=== PATIENT | female | born 1975 | race Caucasian/White ===

== ENCOUNTER 2019-08-29 11:57 | Emergency (ER) | payer SELFPAY ==
[2019-08-29 12:11] VITALS: BP 163/87; PULSE 72; RESP 17; TEMP 36.9; O2SAT 98; BMI 20.1
--- NOTE | 2019-08-29 12:16 | W.ED.NAVMDI ---
HPI - Nausea/Vomiting/Diarrhea General: Chief complaint: Nausea/Vomiting/Diarrhea Stated complaint: n/v x 6 weeks Time Seen by Provider: 08/29/19 12:10 History of Present Illness: HPI Narrative: Patient is a 44-year-old female comes to the ED with abdominal pain, nausea/vomiting and diarrhea. Patient says symptoms started about 6 weeks ago. The abdominal pain is located at epigastric and right upper quadrant. Symptoms worsen after she eats food. Currently she rates her abdominal pain a 5 out of 10. Patient says she has had diarrhea after every time she eats daily. She describes the diarrhea as yellow and fatty. Yesterday patient says she has bright red blood in stool and when she wiped. She says she has a history of hemorrhoids. Patient also has nausea and vomiting that has been constant since onset of symptoms. Patient says she has at least one or more episodes of emesis every day. She currently is not taking any medications to help with symptoms. Patient did say that about 3 weeks ago she had a fever but it has since resolved and she has not had a fever recently. Patient also describes abdominal bloating after she eats. Associated nausea: Yes Associated symtoms: Reports bloating and nausea; Denies change in vision, chest pain, dysuria, fatigue, headache(s) or palpitations Review of Systems Const: Denies: fever(s), chills or fatigue Eyes: Denies: change in vision or eye discomfort ENMT: Denies: throat pain, odynophagia, nasal discharge or nasal congestion Card: Denies: chest pain, palpitations, edema, swelling of feet/ankles, dyspnea on exertion or orthopnea Resp: Denies: dyspnea, productive cough or non-productive cough GI: Reports: abdominal pain, nausea, vomiting, diarrhea and bloating; Denies: constipation or hematochezia : Denies: flank pain, dysuria or hematuria Musc: Denies: neck pain, back pain or extremity swelling Skin/Breast: Denies: rash or new lesions Neuro: Denies: headache(s), numbness in extremities or weakness in extremities PFS ED PFSH: Social History Smoking and tobacco status: current every day smoker Physical Exam Const: COMMON NORMALS: no acute distress, patient oriented x3 and alert GENERAL APPEARANCE: cooperative HENMT: COMMON NORMALS: normocephalic HEAD & SCALP: normocephalic MOUTH: Normal oral and palatal mucosa present THROAT: posterior oropharynx normal and uvula midline Eye: COMMON NORMALS: Equal, round and reactive pupils present PUPIL: Yes Equal, round and reactive pupils present Neck/C-Spine: COMMON NORMALS: supple GENERAL: Yes normal visual inspection Resp: COMMON NORMALS: normal respiratory effort, No retractions, No use of accessory muscles and clear to auscultation bilaterally AUSCULTATION: clear to auscultation bilaterally Cardio: COMMON NORMALS: regular rate, regular rhythm, S1 normal heart sound present, S2 normal heart sound present, No gallops present (Cardio), No clicks present (Cardio), No murmurs present (Cardio) and Peripheral pulses 2+ throughout RATE: regular rate RHYTHM: regular rhythm HEART SOUNDS: S1 normal heart sound present and S2 normal heart sound present PERIPHERAL PULSES: Peripheral pulses 2+ throughout GI: COMMON NORMALS: Soft to palpation and no masses AUSCULTATION: Yes Hyperactive bowel sounds present PALPATION: Yes Soft to palpation and Yes Tenderness to palpation present (GI) (Right upper quadrant and epigastric region.) Details: RUQ : COMMON NORMALS: Yes no CVA tenderness BLADDER/KIDNEY EXAM: Yes no CVA tenderness Back/Pelvis: COMMON NORMALS: no CVA tenderness Extremity: COMMON NORMALS: normal to inspection and no pedal edema Neuro: COMMON NORMALS: patient oriented x3 and moves all extremities SENSORIUM/ORIENTATION: Yes alert Skin: COMMON NORMALS: no rashes or lesions noted GENERAL SKIN EXAM: no rashes or lesions noted and dry skin Course Vital Signs: Vital signs: Vital Signs Temperature 98.5 F 08/29/19 12:11 Pulse Rate 54 L 08/29/19 15:00 Respiratory Rate 16 08/29/19 15:00 Blood Pressure 146/80 08/29/19 15:00 Pulse Oximetry 98 08/29/19 15:00 MDM - Nausea/Vomiting/Diarrhea Lab Data: Attestation: I reviewed the patient's lab results. Labs: Lab Results 08/29/19 08/29/19 08/29/19 Range/Units 12:29 12:29 12:29 WBC 6.5 (4.0-10.0) 10^3/ uL RBC 5.11 (4.1-5.3) 10^6/u L Hgb 15.6 H (11.5-15.3) g/dL Hct 47.2 H (37.0-47.0) % MCV 92.4 (81-99) fL MCH 30.5 (28.0-34.0) pg MCHC 33.1 (30.0-36.0) g/dL RDW 14.1 (12.1-15.1) % Plt Count 272 (130-400) 10^3/c mm MPV 9.5 (7.4-10.4) fL Neut % (Auto) 49.2 % Lymph % (Auto) 43.3 % [place] % (Auto) 5.7 % Eos % (Auto) 1.2 % Baso % (Auto) 0.3 % Neut # (Auto) 3.2 (1.8-7.7) 10^3/u L Lymph # (Auto) 2.8 (0.8-4.8) 10^3/u L [place] # (Auto) 0.4 (0.2-0.9) 10^3/u L Eos # (Auto) 0.1 (0.0-0.8) 10^3/u L Baso # (Auto) 0.0 (0.0-0.1) 10^3/u L Nucleated RBC % (a uto) 0 % Nucleated RBCs # 0.0 /100WBC Sodium 137 (136-145) mmol/L Potassium 3.9 (3.5-5.1) mmol/L Chloride 100 (98-107) mmol/L Carbon Dioxide 25 (22-29) mmol/L Anion Gap 15.9 (5-19) BUN 8 (6-20) mg/dL Creatinine 0.6 (0.5-0.9) mg/dL GFR Calculation 108.1 (90-130) mL/min Glucose 99 (65-115) mg/dL Calculated Osmolal ity 280 L (285-295) mOsm/k g Calcium 9.0 (8.5-10.5) mg/dL Total Bilirubin 0.7 (0.15-1.2) mg/dL AST 20 (0-32) U/L ALT 22 (0-33) U/L Alkaline Phosphata se 108 H (35-105) IU/L Total Protein 7.2 (6.6-8.7) g/dL Albumin 4.4 (3.5-5.2) g/dL Globulin 2.8 (1.3-4.6) g/dL Lipase 22 (13-60) U/L HCG, Qual Negative (Negative) Imaging Data^: US: Attestation: I personally reviewed and interpreted this imaging study as follows: Radiologist's impression: [place] [id number] Ultrasound Report Signed Patient: Christina Cochran Unit #: [id number] : 1975 Age/Sex: 44 / F ADM Date: 08/29/19 Loc: ER Room/Bed: Attending Dr: Ordering Provider/Ordering MD: Eloy Turcios Date of Service: 08/29/19 Procedure(s): US gall bladder 32283 Accession Number(s): [id number] Report Number: [id number] WS: [id number] ABDOMINAL ULTRASOUND LIMITED REASON FOR VISIT: epigastric and RUQ tenderness TECHNIQUE: Grayscale and Doppler ultrasound examination of the abdomen. FINDINGS: Pancreas: Normal Abdominal aorta and IVC: Normal Liver: Liver measures 9.4 cm in length. Normal hepatopedal circulation. Gallbladder: Gallbladder wall thickness measures 0.2 mm. No gallstones identified. Common bile duct measured 0.25 cm Right kidney: Right kidney measures 10.0 cm x 6.0 cm x 3.4 cm. No hydronephrosis or stones. US/US gall bladder [id number] IMPRESSION: Normal right upper quadrant ultrasound. Dictated By: Archie Townsend DO Signed By: Archie Townsend DO Signed Date/Time: 08/29/19 1302 DD/ 1300 CT Abd/Pel: Attestation: I personally reviewed and interpreted this imaging study as follows: Radiologist's impression: [address] [id number] [address] Scan Report Signed Patient: Christina Cochran Unit #: [id number] : 1975 Age/Sex: 44 / F ADM Date: 08/29/19 Loc: ER Room/Bed: Attending Dr: Ordering Provider/Ordering MD: Eloy Turcios Date of Service: 08/29/19 Procedure(s): CT abdomen pelvis w con* [id number] Accession Number(s): [id number] Report Number: [id number] WS: [id number] CT abdomen pelvis w con* [id number] REASON FOR EXAM: abdom pain, n/v/diarrhea IV CONTRAST ADMINISTERED: Omnipaque 300, 95 mL TOTAL EXAM DLP: 518.[address] scans at [facility] use at least one of these dose optimization techniques: automated exposure control; mA and/or kV adjustment per patient size (includes targeted exams where dose is matched to clinical indication); or iterative reconstruction. FINDINGS: The liver appears to be of normal size configuration. The lower lung velázquez were normal. The gallbladder shows no definite stones. The pancreas head, body, tail were normal. The spleen was normal. The adrenal glands show no abnormalities. The kidneys and ureters were normal. The small bowel is slightly prominent but not thickened wall and show no obstructive changes. There is mild interposition of the colon between the diaphragm and liver. The appendix was normal show no inflammatory changes. The remaining large bowel was normal. The urinary bladder was normal. The uterus is of normal size there is bilateral small ovarian cysts bilaterally. The endometrium is thickened measured 10.37 mm. There is fluid in the cul-de-sac on the right side. The bony pelvis was normal as well as the lumbar spine. Spurring is seen off the L1-[address]/CT abdomen pelvis w con* [id number] IMPRESSION: Small cystic changes in both ovaries Free fluid in the cul-de-sac on the right Slightly dilated small bowel but no obstructive changes. Dictated By: Archie Townsend DO Signed By: Archie Townsend DO Signed Date/Time: 08/29/194 DD/ 27 Discharge Plan Discharge Patient Disposition: Home, Self-Care Clinical Impression: Biliary colic symptom Nausea & vomiting Qualifiers: Vomiting type: unspecified Vomiting Intractability: non-intractable Qualified Code(s): R11.2 - Nausea with vomiting, unspecified Condition: Stable Prescriptions: New Zofran 4 mg tablet 4 mg PO BID Qty: 20 RF: 0 dicyclomine 20 mg tablet 20 mg PO QID Qty: 30 RF: 0 omeprazole 20 mg capsule,delayed release(DR/EC) 20 mg PO DAILY Qty: 20 RF: 0 No Action No Known Home Medications RF: 0 Discharge Orders: Discharge Order (Routine); Ordered 08/29/19 Ordered By: Eloy Turcios Discharge Diet: Advance as tolerated Discharge Activity: Resume usual activity Patient Instructions: Biliary Colic (ED), Clear Liquid Diet (ED) Activity Restrictions/Additional Instructions: Call your PCP and set up an appointment for reevaluation in 5 to 7 days. Take dicyclomine to help with any abdominal cramping and diarrhea. Prescribed you Zofran to take as needed for nausea. And I am also putting you on omeprazole which will help with your epigastric pain and discomfort. Drink plenty of fluids and stay hydrated. Advance your diet as tolerated. I would start with only drinking clear liquids for the next 24 hours and advance from there slowly. Return to the ED if symptoms worsen. Discharge Date/Time: 08/29/19 15:00 Coding Level of Care Code ED Locomotive Observer for Issa Fwd Exam Comprehensive
[2019-08-29 12:20] VITALS: BP 163/87; PULSE 78; RESP 16; O2SAT 98
[2019-08-29] MEDS: sodium chloride 0.9% 1,000 ML 999 ML IV (12:32)
[2019-08-29] MEDS: ondansetron 2 mg/ML SDV 2 mL 4 MG IVP (12:32)
--- NOTE | 2019-08-29 12:34 | US_ITS ---
WS: [id number] ABDOMINAL ULTRASOUND LIMITED REASON FOR VISIT: epigastric and RUQ tenderness TECHNIQUE: Grayscale and Doppler ultrasound examination of the abdomen. FINDINGS: Pancreas: Normal Abdominal aorta and IVC: Normal Liver: Liver measures 9.4 cm in length. Normal hepatopedal circulation. Gallbladder: Gallbladder wall thickness measures 0.2 mm. No gallstones identified. Common bile duct measured 0.25 cm Right kidney: Right kidney measures 10.0 cm x 6.0 cm x 3.4 cm. No hydronephrosis or stones. US/US gall bladder [id number] IMPRESSION: Normal right upper quadrant ultrasound.
[2019-08-29 12:51] LABS: Basophils % 0.3 %; Eosinophils # 0.1 10^3/uL (0.0-0.8); Eosinophils % 1.2 %; Hematocrit 47.2 % (37.0-47.0); Hemoglobin 15.6 g/dL (11.5-15.3); Lymphocytes # 2.8 10^3/uL (0.8-4.8); Lymphocytes % 43.3 %; Mean Corpuscular HGB Conc 33.1 g/dL (30.0-36.0); Mean Corpuscular Hemoglobin 30.5 pg (28.0-34.0); Mean Corpuscular Volume 92.4 fL (81-99); Mean Platelet Volume 9.5 fL (7.4-10.4); Monocytes # 0.4 10^3/uL (0.2-0.9); Monocytes % 5.7 %; Neutrophils # 3.2 10^3/uL (1.8-7.7); Neutrophils % 49.2 %; Nucleated Red Blood Cells % 0 %; Platelet Count 272 10^3/cmm (130-400); Red Blood Count 5.11 10^6/uL (4.1-5.3); Red Cell Distribution Width 14.1 % (12.1-15.1); White Blood Count 6.5 10^3/uL (4.0-10.0)
[2019-08-29 12:54] LABS: HCG, Serum Qual Negative (Negative)
[2019-08-29 13:01] LABS: Alanine Aminotransferase 22 U/L (0-33); Albumin Level 4.4 g/dL (3.5-5.2); Alkaline Phosphatase 108 IU/L (35-105); Anion Gap 15.9 (5-19); Aspartate Amino Transferase 20 U/L (0-32); Blood Urea Nitrogen 8 mg/dL (6-20); Carbon Dioxide 25 mmol/L (22-29); Chloride 100 mmol/L (98-107); Globulin 2.8 g/dL (1.3-4.6); Glomerular Filtration Rate 108.1 mL/min (90-130); Glucose 99 mg/dL (65-115); Lipase 22 U/L (13-60); Osmolality Calculated 280 mOsm/kg (285-295); Potassium 3.9 mmol/L (3.5-5.1); Sodium 137 mmol/L (136-145); Total Bilirubin 0.7 mg/dL (0.15-1.2); Total Protein 7.2 g/dL (6.6-8.7)
[2019-08-29] MEDS: diphenhydrAMINE 50 mg/mL SDV 1mL 25 MG IVP (13:05)
[2019-08-29 13:07] VITALS: RESP 18; O2SAT 99
[2019-08-29] MEDS: morphine 4 mg/mL SDV 1 mL IVP (13:07)
[2019-08-29 13:08] VITALS: BP 151/80; PULSE 60; RESP 18; O2SAT 99
--- NOTE | 2019-08-29 13:08 | CT_ITS ---
WS: [id number] CT abdomen pelvis w con* [id number] REASON FOR EXAM: abdom pain, n/v/diarrhea IV CONTRAST ADMINISTERED: Omnipaque 300, 95 mL TOTAL EXAM DLP: 518.[address] scans at [facility] use at least one of these dose optimization techniques: automat ed exposure control; mA and/or kV adjustment per patient size (includes targeted exams where dose is matched to clinical indication); or iterative reconstruction. FINDINGS: The liver appears to be of normal size configuration. The lower lung velázquez were normal. The gallbladder shows no definite stones. The pancreas head, body, tail were normal. The spleen was normal. The adrenal glands show no abnormalities. The kidneys and ureters were normal. The small bowel is slightly prominent but not thickened wall and show no obstructive changes. There is mild interposition of the colon between the diaphragm and liver. The appendix was normal show no inflammatory changes. The remaining large bowel was normal. The urinary bladder was normal. The uterus is of normal size there is bilateral small ovarian cysts bilaterally. The endometrium is t hickened measured 10.37 mm. There is fluid in the cul-de-sac on the right side. The bony pelvis was normal as well as the lumbar spine. Spurring is seen off the L1-[address]/CT abdomen pelvis w con* [id number] IMPRESSION: Small cystic changes in both ovaries Free fluid in the cul-de-sac on the right Slightly dilated small bowel but no obstructive changes.
[2019-08-29 14:04] VITALS: BP 130/76; PULSE 53; RESP 16; O2SAT 99
[2019-08-29] MEDS: iohexol 300 mg/mL 100 mL Btl IV (14:26)
[2019-08-29 15:00] VITALS: BP 146/80; PULSE 54; RESP 16; O2SAT 98
== END 2019-08-29 15:00 | disposition home or self-care (01) ==
PROVIDERS: Emergency Provider Physician Assistant
DX: R11.2 Nausea with vomiting, unspecified (principal); F17.210 Nicotine dependence, cigarettes, uncomplicated
CPT/HCPCS: 12345; 74177; 76705; 80053; 83690; 84703; 85025; 96361; 96374; 96375; 99282; 99284; J1200; J2270; J2405; J7030; Q9967